=== PATIENT | female | born 1940 | race Caucasian/White ===

== ENCOUNTER 2016-08-19 14:41 | Emergency (ER) | payer MEDICARE, OTHER ==
[2016-08-19 14:51] VITALS: BP 159/79
[2016-08-19 15:16] LABS: APPEARANCE,URINE TURBID (CLEAR); BILIRUBIN,URINE NEGATIVE (NEGATIVE); GLUCOSE,URINE NEGATIVE (NEGATIVE); KETONES,URINE NEGATIVE (NEGATIVE); LEUKOCYTE ESTERASE,URINE SMALL (NEGATIVE); NITRITE,URINE POSITIVE (NEGATIVE); OCCULT BLOOD,URINE LARGE (NEGATIVE); PH,URINE 6.5 (5.0-8.0); PROTEIN,URINE 100 mg/dL (NEGATIVE); UROBILINOGEN,URINE 0.2 EU/dL (0.2)
[2016-08-19 15:30] LABS: BACTERIA,URINE FEW /HPF (NEGATIVE); MUCUS,URINE NOT SEEN /LPF (NEGATIVE); RBC CLUMPS,URINE PRESENT; RBC,URINE PACKED /HPF (NOT SEEN); RENAL EPITHELIAL CELLS,URINE FEW /HPF (NEGATIVE)
[2016-08-19] MEDS ORDERED: cefTRIAXone 1 GM Vial IM ONE (15:37)
[2016-08-19] MEDS ORDERED: Take Home: Phenazopyridine 95 MG Tab, 4 Tab Pack ONE (15:41)
--- NOTE | 2016-08-19 15:55 | EDM.PDOC ---
ED HPI RENAL/ - General Chief Complaint: Genitourinary Problem Stated Complaint: BLOOD IN URINE Time Seen by Provider: 08/19/16 14:57 Source of Information: Reports: Patient History Limitations: Reports: No limitations - History of Present Illness INITIAL COMMENTS - FREE TEXT/NARRATIVE: patient has had left-sided flank pain for the past month. This has been waxing and waning in intensity. She states that she has seen her primary doctor and she was concerned that it may have been gas retention. The patient also was told that it may also be secondary to her assisting her ailing . At any rate last night the patient started having a great deal of pelvic pain. This was followed by gross amount of hematuria. This persisted throughout the night and into this morning when it did stop but the pain has been persistent. She does have polyuria. She has a history of a kidney cancer on the left side that has been resected she had subsequent radiation thereafter. The patient has not had a urinary tract infection in number of years. She does have some next urinary incontinence. She has a history of a hysterectomy secondary to bleeding and fibroids. She has also had a cholecystectomy and appendectomy. She does have an allergy to sulfa. I did give her a shot of Rocephin and notified her that we will be doing a culture of her urine. I will be giving her Ceftin and also Pyridium. I would like for her to follow up with her primary physician in a week to ensure that the infection is gone. She is afebrile. I don't believe that she has polynephritis. Patient does not have a history of kidney stones. Her discomfort is a 6-7/10. This is quite sharp and has been constant. The patient was couple with the medical plan. It took about 25-35 minutes for the interview and examination. Location: Reports: flank (left side), suprapubic Quality: Reports: ache Severity: moderate Worsens with: Reports: urinating Context: Denies: sick contact Associated Symptoms: Reports: burning, dysuria, frequency, nocturia, urgency, voiding small amounts, blood in urine, abdominal pain (suprapubic). 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: Other (see below) (tylenol) - Related Data Allergies/ADRs: Allergies Allergy/AdvReac Type Severity Reaction Status Date / Time Sulfa (Sulfonamide Allergy Unknown Cannot Verified 08/19/16 14:53 Antibiotics) Remember atorvastatin [From Lipitor] Allergy Cannot Verified 08/19/16 14:53 Remember Home Meds: Home Meds Cefuroxime [Ceftin] 500 mg PO BID #20 tablet 08/19/16 [Rx] Levothyroxine [Synthroid] 88 mcg PO ACBREAKFAST 08/19/16 [History] Rosuvastatin [Crestor] 5 mg PO DAILY 08/19/16 [History] Sertraline HCl 25 mg PO DAILY 08/19/16 [History] Past Medical History Cardiovascular History: Reports: High cholesterol Psychiatric History: Reports: Depression Endocrine/Metabolic History: Reports: Hypothyroidism Social & Family History - Tobacco Use Smoking Status *Q: Never Smoker ED ROS GENERAL - Review of Systems Review Of Systems: See Below Respiratory: Reports: no symptoms Cardiovascular: Reports: No symptoms GI/Abdominal: Reports: Abdominal pain (suprapubic.) : Reports: dysuria, flank pain, frequency, hematuria, incontinence, pain, urgency Neurological: Reports: no symptoms Psychiatric: Reports: No symptoms ED EXAM, RENAL/ - Physical Exam Exam: See Below Exam Limited By: No limitations General Appearance: alert, moderate distress Eye Exam: bilateral eye: EOMI Respiratory/Chest: no respiratory distress, lungs clear, normal breath sounds, no accessory muscle use, chest non-tender Cardiovascular: normal peripheral pulses, regular rate, rhythm, no edema, no gallop, no JVD, no murmur, no rub GI/Abdominal: normal bowel sounds, soft, other (tenderness suprapubic) Back Exam: CVA tenderness (L). No: CVA tenderness (R) Extremities: normal inspection Neurological: alert, oriented Psychiatric: normal affect Skin Exam: Warm, Dry Course - Vital Signs Last Recorded V/S: Last Vital Signs Temp 36.2 C 08/19/16 14:51 Pulse 81 08/19/16 14:51 Resp 18 08/19/16 14:51 BP 159/79 H 08/19/16 14:51 Pulse Ox 96 08/19/16 14:51 - Orders/Labs/Meds Orders: Active Orders 24 hr Category Date Time Status CULTURE URINE [RM] Stat Lab 08/19/16 15:01 Received Labs: Laboratory Tests 08/19/16 Range/Units 15:01 Urine Color Heidi H (YELLOW) Urine Appearance Turbid H (CLEAR) Urine pH 6.5 (5.0-8.0) Ur Specific [place] 1.025 Urine Protein 100 H (NEGATIVE) mg/dL Urine Glucose (UA) Negative (NEGATIVE) mg/dL Urine Ketones Negative (NEGATIVE) mg/dL Urine Occult Blood Large H (NEGATIVE) Urine Nitrite Positive H (NEGATIVE) Urine Bilirubin Negative (NEGATIVE) Urine Urobilinogen 0.2 (0.2) EU/dL Ur Leukocyte Esterase Small H (NEGATIVE) Urine RBC Packed (NOT SEEN) /HPF Urine Red Cell Clumps Present Urine WBC 5-10 H (NOT SEEN) /HPF Ur Squamous Epith Cells Moderate H (NEGATIVE) /HPF Ur Renal Epithelial Cell Few H (NEGATIVE) /HPF Amorphous Sediment Few Urine Bacteria Few H (NEGATIVE) /HPF Urine Mucus Not seen (NEGATIVE) /LPF Meds: Medications Discontinued Medications Generic Name Dose Route Start Last Admin Trade Name Freq PRN Reason Stop Dose Admin Ceftriaxone Sodium 1 gm 08/19/16 15:37 08/19/16 16:06 Rocephin IM 08/19/16 15:38 1 gm ONETIME ONE Administration Phenazopyridine HCl 1 packet 08/19/16 15:41 Take Home: Phenazopyridine, 4 Tab Pack .XX 08/19/16 15:42 ONETIME ONE Departure - Departure Time of Disposition: 15:51 Disposition: Home, Self-Care 01 Preliminary Cause of *Q: sepsis & multi system organ failure Condition: good Clinical Impression: UTI, Urinary tract infectious disease Urinary tract infection Qualifiers: Urinary tract infection type: acute cystitis Hematuria presence: with hematuria Qualified Code(s): N30.01 - Acute cystitis with hematuria Prescriptions: Cefuroxime [Ceftin] 500 mg PO BID #20 tablet Instructions: Urinary Tract Infection, Adult, [id number] Referrals: Zoe Menjivar MD [Primary Care Provider] - Forms: ED Department Discharge Additional Instructions: Your urinary system does have an infection. The urinary culture is still pending. You did receive a shot of Rocephin today and I would like for you to fill the prescription tomorrow. You also received some Pyridium for the discomfort. Stay well hydrated. Followup with your primary physician. If the urinary culture comes back as we need to change the medications we will notify you. I would also recommend following up with your primary doctor to ensure that the infection is gone. - My Orders Last 24 Hours: My Active Orders 08/19/16 15:01 CULTURE URINE [RM] Stat - Assessment/Plan Last 24 Hours: My Active Orders 08/19/16 15:01 CULTURE URINE [RM] Stat
== END 2016-08-19 16:15 | disposition home or self-care (01) ==
LOC: VM.ED 14:41
DX: N30.01 Acute cystitis with hematuria (principal); E78.00 Pure hypercholesterolemia, unspecified; F32.9 Major depressive disorder, single episode, unspecified; E03.9 Hypothyroidism, unspecified; Z88.2 Allergy status to sulfonamides; Z88.8 Allergy status to other drugs, medicaments and biological substances; Z79.899 Other long term (current) drug therapy
CPT/HCPCS: 81001; 87086; 87088; 87186; 96372; 99283; A9270; J0696

== ENCOUNTER 2020-03-16 07:12 | Emergency (ER) | payer MEDICARE, OTHER ==
[2020-03-16] MEDS ORDERED: Aspirin 81 MG Tab.Chew PO ONE (07:28)
[2020-03-16] MEDS ORDERED: Nitroglycerin 0.4 MG Tab.SL SL ONE (07:28)
[2020-03-16] MEDS ORDERED: Sodium Chloride 0.9% 10 ML Syringe FLUSH PRN ×2 (07:33→08:18)
--- NOTE | 2020-03-16 08:05 | EDM.PDOC ---
ED HPI GENERAL MEDICAL PROBLEM - General Stated Complaint: CHEST PAINS Time Seen by Provider: 03/16/20 07:20 Source of Information: Reports: Patient History Limitations: Reports: No Limitations - History of Present Illness INITIAL COMMENTS - FREE TEXT/NARRATIVE: Patient comes emergency department today from home with complaints of chest pressure and pain. This patient on Saturday throughout the day had heaviness on her chest. She had shortness of breath with physical exertion. The pain resolved on its own eventually and she was not seen. She did talk with her primary care provider over the phone who told her to come to the ER although she did not as her pain resolved. This morning when she got up to go to the bathroom she had a very similar pressure on her chest. This pressure is a constant heaviness on her chest. She has shortness of breath with physical exertion. No weakness dizziness lightheadedness. No syncope. No palpitations. No cough or congestion. No fever no chills. No COVID exposure COVID symptoms. No diaphoresis nausea or vomiting. No abdominal pain. No black or tarry stools or history of GI bleed. Chest Pain Pain Score (Numeric/FACES): 5 - Related Data Allergies Allergy/AdvReac Type Severity Reaction Status Date / Time Sulfa (Sulfonamide Allergy Unknown Cannot Verified 03/16/20 08:46 Antibiotics) Remember atorvastatin [From Lipitor] Allergy Cannot Verified 03/16/20 08:46 Remember Home Meds: Home Meds Cefuroxime [Ceftin] 500 mg PO BID #20 tablet 08/19/16 [Rx] Levothyroxine [Synthroid] 88 mcg PO ACBREAKFAST 08/19/16 [History] Rosuvastatin [Crestor] 5 mg PO DAILY 08/19/16 [History] Sertraline HCl 25 mg PO DAILY 08/19/16 [History] Past Medical History Cardiovascular History: Reports: High Cholesterol Psychiatric History: Reports: Depression Endocrine/Metabolic History: Reports: Hypothyroidism ED ROS GENERAL - Review of Systems Review Of Systems: Comprehensive ROS is negative, except as noted in HPI. ED EXAM, GENERAL - Physical Exam Exam: See Below Exam Limited By: No Limitations General Appearance: Alert, WD/WN, No Apparent Distress Eye Exam: Bilateral Eye: EOMI Ears: Normal External Exam Nose: Normal Inspection Throat/Mouth: Normal Inspection Head: Atraumatic, Normocephalic Neck: Normal Inspection, Supple Respiratory/Chest: No Respiratory Distress, Lungs Clear, Normal Breath Sounds, No Accessory Muscle Use, Chest Non-Tender Cardiovascular: Normal Peripheral Pulses, Regular Rate, Rhythm Peripheral Pulses: 2+: Radial (L), Radial (R) GI/Abdominal: Normal Bowel Sounds, Soft (Female) Exam: Deferred Rectal (Female) Exam: Deferred Back Exam: Normal Inspection Extremities: Normal Inspection, Normal Range of Motion, No Pedal Edema, Normal Capillary Refill Neurological: Alert, Oriented, CN II-XII Intact, Normal Cognition, No Motor/Sensory Deficits Psychiatric: Normal Affect, Normal Mood Skin Exam: Warm, Dry, Intact, Normal Color EKG INTERPRETATION EKG Date: 03/16/20 Time: 07:10 Rhythm: NSR Rate (Beats/Min): 84 [place]: Normal P-Wave: Present QRS: Normal ST-T: Depressed (Almost 1mm of lateral depression) Comparison: Change From Previous EKG Course - Vital Signs Last Recorded V/S: Last Vital Signs Temp 98.2 F 03/16/20 07:45 Pulse 63 03/16/20 11:11 Resp 14 03/16/20 11:11 BP 152/69 H 03/16/20 11:11 Pulse Ox 97 03/16/20 11:11 - Orders/Labs/Meds Orders: Active Orders 24 hr Category Date Time Status EKG Documentation Completion [RC] STAT Care 03/16/20 07:33 Active EKG Documentation Completion [RC] STAT Care 03/16/20 07:50 Active Heparin Sodium/0.45% NaCl [Heparin 25,000 Units in 1/2 Med 03/16/20 08:45 Active NS 500 ML] 25,000 units in 500 ml IV TITRATE Sodium Chloride 0.9% [Saline Flush] Med 03/16/20 07:33 Active 10 ml FLUSH ASDIRECTED PRN Sodium Chloride 0.9% [Saline Flush] Med 03/16/20 08:18 Active 10 ml FLUSH ASDIRECTED PRN Peripheral IV Insertion Adult [OM.PC] Stat Oth 03/16/20 07:33 Ordered Peripheral IV Insertion Adult [OM.PC] Stat Oth 03/16/20 08:18 Ordered Medication Orders Heparin Sodium/Sodium Chloride (Heparin 25,000 Units In 1/2 Ns 500 Ml) 25,000 units in 500 mls @ 20 mls/hr IV TITRATE [facility]; Protocol Last Admin: 03/16/20 09:05 Dose: 1,000 units/hr, 20 mls/hr Documented by: WILLARD Cosigned by: SHAYY Sodium Chloride (Saline Flush) 10 ml FLUSH ASDIRECTED PRN PRN Reason: Keep Vein Open Sodium Chloride (Saline Flush) 10 ml FLUSH ASDIRECTED PRN PRN Reason: Keep Vein Open Labs: Laboratory Tests 03/16/20 03/16/20 03/16/20 Range/Units 07:35 07:35 07:35 WBC 5.4 (4.0-10.0) x10^3/uL RBC 4.50 (4.00-5.50) x10^6/uL Hgb 14.3 (12.0-16.0) g/dL Hct 42.0 (33.0-47.0) % MCV 93.3 H (78.0-93.0) fL MCH 31.8 (26.0-32.0) pg MCHC 34.0 (32.0-36.0) g/dL RDW Coeff of Thien 13.9 (10.0-15.0) % Plt Count 172 (130-400) x10^3/uL Neut % (Auto) 50.1 (50.0-80.0) % Lymph % (Auto) 34.8 (25.0-50.0) % [place] % (Auto) 8.9 (2.0-11.0) % Eos % (Auto) 5.8 H (0.0-4.0) % Baso % (Auto) 0.4 (0.2-1.2) % PT (9.5-12.3) SEC INR (2.0-3.5) APTT (25.6-32.8) SEC Sodium 140 (136-145) mmol/L Potassium 4.1 (3.5-5.1) mmol/L Chloride 105 (98-107) mmol/L Carbon Dioxide 27 (21-32) mmol/L Anion Gap 12.1 (10-20) mmol/L BUN 15 (7-18) mg/dL Creatinine 1.0 (0.55-1.02) mg/dL Est Cr Clr Drug Dosing TNP Estimated GFR (MDRD) 53 Glucose 98 (74-106) mg/dL Lactic Acid (0.4-2.0) mmol/L Calcium 9.9 (8.5-10.1) mg/dL Corrected Calcium 10.06 (8.5-10.1) mg/dL Total Bilirubin 0.7 (0.2-1.0) mg/dL AST 487 H (15-37) U/L ALT 800 H (14-59) U/L Alkaline Phosphatase 196 H (46-116) U/L Troponin I < 0.017 (<=0.056) ng/mL C-Reactive Protein 2.0 H (<=0.9) mg/dL Total Protein 7.1 (6.4-8.2) g/dL Albumin 3.8 (3.4-5.0) g/dL Globulin 3.3 Albumin/Globulin Ratio 1.15 Lipase 299 (73-393) U/L 03/16/20 03/16/20 03/16/20 Range/Units 08:32 08:32 10:49 WBC (4.0-10.0) x10^3/uL RBC (4.00-5.50) x10^6/uL Hgb (12.0-16.0) g/dL Hct (33.0-47.0) % MCV (78.0-93.0) fL MCH (26.0-32.0) pg MCHC (32.0-36.0) g/dL RDW Coeff of Thien (10.0-15.0) % Plt Count (130-400) x10^3/uL Neut % (Auto) (50.0-80.0) % Lymph % (Auto) (25.0-50.0) % [place] % (Auto) (2.0-11.0) % Eos % (Auto) (0.0-4.0) % Baso % (Auto) (0.2-1.2) % PT 9.9 (9.5-12.3) SEC INR 0.9 L (2.0-3.5) APTT 24.3 L (25.6-32.8) SEC Sodium (136-145) mmol/L Potassium (3.5-5.1) mmol/L Chloride (98-107) mmol/L Carbon Dioxide (21-32) mmol/L Anion Gap (10-20) mmol/L BUN (7-18) mg/dL Creatinine (0.55-1.02) mg/dL Est Cr Clr Drug Dosing Estimated GFR (MDRD) Glucose (74-106) mg/dL Lactic Acid 0.9 (0.4-2.0) mmol/L Calcium (8.5-10.1) mg/dL Corrected Calcium (8.5-10.1) mg/dL Total Bilirubin (0.2-1.0) mg/dL AST (15-37) U/L ALT (14-59) U/L Alkaline Phosphatase (46-116) U/L Troponin I < 0.017 (<=0.056) ng/mL C-Reactive Protein (<=0.9) mg/dL Total Protein (6.4-8.2) g/dL Albumin (3.4-5.0) g/dL Globulin Albumin/Globulin Ratio Lipase (73-393) U/L 03/16/20 03/16/20 Range/Units 15:02 15:02 WBC (4.0-10.0) x10^3/uL RBC (4.00-5.50) x10^6/uL Hgb (12.0-16.0) g/dL Hct (33.0-47.0) % MCV (78.0-93.0) fL MCH (26.0-32.0) pg MCHC (32.0-36.0) g/dL RDW Coeff of Thien (10.0-15.0) % Plt Count (130-400) x10^3/uL Neut % (Auto) (50.0-80.0) % Lymph % (Auto) (25.0-50.0) % [place] % (Auto) (2.0-11.0) % Eos % (Auto) (0.0-4.0) % Baso % (Auto) (0.2-1.2) % PT (9.5-12.3) SEC INR (2.0-3.5) APTT 97.4 H* D (25.6-32.8) SEC Sodium (136-145) mmol/L Potassium (3.5-5.1) mmol/L Chloride (98-107) mmol/L Carbon Dioxide (21-32) mmol/L Anion Gap (10-20) mmol/L BUN (7-18) mg/dL Creatinine (0.55-1.02) mg/dL Est Cr Clr Drug Dosing Estimated GFR (MDRD) Glucose (74-106) mg/dL Lactic Acid (0.4-2.0) mmol/L Calcium (8.5-10.1) mg/dL Corrected Calcium (8.5-10.1) mg/dL Total Bilirubin (0.2-1.0) mg/dL AST (15-37) U/L ALT (14-59) U/L Alkaline Phosphatase (46-116) U/L Troponin I < 0.017 (<=0.056) ng/mL C-Reactive Protein (<=0.9) mg/dL Total Protein (6.4-8.2) g/dL Albumin (3.4-5.0) g/dL Globulin Albumin/Globulin Ratio Lipase (73-393) U/L Meds: Medications Generic Name Dose Route Start Last Admin Trade Name Freq PRN Reason Stop Dose Admin Heparin Sodium/Sodium Chloride 25,000 units in 500 mls @ 20 mls/hr 03/16/20 08:45 03/16/20 09:05 Heparin 25,000 Units In 1/2 Ns 500 Ml IV 1,000 units/hr TITRATE LUDIVINA 20 mls/hr Administration Protocol 1,000 UNITS/HR Sodium Chloride 10 ml 03/16/20 07:33 Saline Flush FLUSH ASDIRECTED PRN Keep Vein Open Sodium Chloride 10 ml 03/16/20 08:18 Saline Flush FLUSH ASDIRECTED PRN Keep Vein Open Discontinued Medications Generic Name Dose Route Start Last Admin Trade Name George PRN Reason Stop Dose Admin Aspirin 324 mg 03/16/20 07:28 03/16/20 07:37 Aspirin PO 03/16/20 07:29 324 mg ONETIME ONE Administration Heparin Sodium (Porcine) 4,000 units 03/16/20 08:32 03/16/20 08:40 Heparin Sodium IVPUSH 03/16/20 08:33 4,000 units .BOLUS ONE Administration Lactated Ringer's 1,000 mls @ 999 mls/hr 03/16/20 09:03 03/16/20 09:15 Ringers, Lactated IV 03/16/20 10:03 999 mls/hr ONETIME ONE Administration Iopamidol 100 ml 03/16/20 08:45 03/16/20 09:08 Isovue-300 (61%) IVPUSH 03/16/20 08:46 100 ml ONETIME ONE Administration Nitroglycerin 0.4 mg 03/16/20 07:28 03/16/20 07:46 Nitrostat SL 03/16/20 07:29 0.4 mg ONETIME ONE Administration - Radiology Interpretation Free Text/Narrative:: Chest x-ray per radiology bilateral symmetric lung hyperinflation nonspecific but commonly seen in the sequelae of COPD. No other acute findings per radiology. CT abdomen pelvis per radiology shows mild to moderate intra-and extrahepatic bile duct dilation. Has mildly increased relative to previous CT scan in 2016. Correlation with laboratory evaluation if concern for biliary obstruction consider MRCP or ERCP for - Re-Assessments/Exams Free Text/Narrative Re-Assessment/Exam: 03/16/20 08:10 Initially was given ASA Nitro with complete relief of pain. Shortly there after CP returned. 2nd dose of Nitro given. with resolution of CP. 03/16/20 08:33 I called and spoke with Dr. Lao (? swelling). HPI ER COURSE findings and concerns were relayed to him verbally over the phone. The negative troponins as well as the elevated LFTs were highlighted and the improved ST depression and EKGs were faxed. He would like the patient to be started on Heparin and nitro gtt if the CP returns and complete a CT abd pelvis with contrast with the elevated liver enzymes and call back with the report. I discussed the plan of care with the patient and her and they are comfortable with this plan. 03/16/20 09:04 Heparin bolus and gtt started. With her history of only one kidney we will give a 500ml LR bolus and then 125mls/hr. Still chest pain free at this time. 03/16/20 11:52 There will be a delay in transfer the patient is aware as [facility] currently has no beds. Her repeat troponin is negative and she maintains CP free. We will repeat troponin and PTT with the heparin gtt. 03/16/20 14:39 Still waiting on a bed from [place]. NO CP since the nitros earlier. waiting for repeat lab at 3pm. PT is aware of waiting reason. 03/16/20 15:35 PTT 97 will hold the infusion for an hour and decrease by 4units/kg/hr still waiting for a bed from [place]. Still no chest pain. Departure - Departure Time of Disposition: 09:00 Disposition: DC/Tfer to [facility] 02 Reason for Transfer *Q: Other Clinical Impression: Angina at rest, Elevated liver enzymes Referrals: Zoe Menjivar MD [Primary Care Provider] - Forms: Interfacility Transfer EMTALA Sepsis Event Note (ED) - Focused Exam Vital Signs: Vital Signs Temp Pulse Resp BP BP Pulse Ox 03/16/20 11:11 63 14 152/69 H 97 03/16/20 10:15 66 15 145/62 H 03/16/20 09:40 70 128/58 L 03/16/20 09:10 72 132/78 03/16/20 08:38 67 119/59 L 03/16/20 08:28 66 14 109/57 L 96 03/16/20 08:18 76 111/63 96 03/16/20 08:08 84 15 104/48 L 97 03/16/20 07:59 81 14 147/61 H 97 03/16/20 07:50 76 16 141/76 H 97 03/16/20 07:46 72 16 160/79 H 160/79 H 94 L 03/16/20 07:45 98.2 F 76 14 177/80 H 94 L - My Orders Last 24 Hours: My Active Orders 03/16/20 07:33 EKG Documentation Completion [RC] STAT Sodium Chloride 0.9% [Saline Flush] 10 ml FLUSH ASDIRECTED PRN Peripheral IV Insertion Adult [OM.PC] Stat 03/16/20 07:50 EKG Documentation Completion [RC] STAT 03/16/20 08:18 Sodium Chloride 0.9% [Saline Flush] 10 ml FLUSH ASDIRECTED PRN Peripheral IV Insertion Adult [OM.PC] Stat 03/16/20 08:45 Heparin Sodium/0.45% NaCl [Heparin 25,000 Units in 1/2 NS 500 ML] 25,000 units in 500 ml IV TITRATE - Assessment/Plan Last 24 Hours: My Active Orders 03/16/20 07:33 EKG Documentation Completion [RC] STAT Sodium Chloride 0.9% [Saline Flush] 10 ml FLUSH ASDIRECTED PRN Peripheral IV Insertion Adult [OM.PC] Stat 03/16/20 07:50 EKG Documentation Completion [RC] STAT 03/16/20 08:18 Sodium Chloride 0.9% [Saline Flush] 10 ml FLUSH ASDIRECTED PRN Peripheral IV Insertion Adult [OM.PC] Stat 03/16/20 08:45 Heparin Sodium/0.45% NaCl [Heparin 25,000 Units in 1/2 NS 500 ML] 25,000 units in 500 ml IV TITRATE
[2020-03-16 08:12] LABS: CHLORIDE,CL 105 mmol/L (98-107); SODIUM,NA 140 mmol/L (136-145)
[2020-03-16 08:14] LABS: ANION GAP 12.1 mmol/L (10-20)
[2020-03-16] MEDS ORDERED: Heparin Sodium 5,000 Units/ML Vial IVPUSH ONE (08:32)
[2020-03-16] MEDS ORDERED: Iopamidol 612 MG/ML 100 ML Bottle IVPUSH ONE (08:45)
[2020-03-16] MEDS ORDERED: Heparin Sodium/0.45% NaCl 25,000 UNITS/500 ML BAG IV SCH (08:45)
[2020-03-16 08:55] LABS: PTT,PARTIAL THROMBOPLSTIN TIME 24.3 SEC (25.6-32.8)
[2020-03-16] MEDS ORDERED: Lactated Ringers 1,000 ML IV ONE (09:03)
[2020-03-16 11:12] VITALS: BP 152/69; PULSE 63
--- NOTE | 2020-03-16 12:13 | CR ---
[id number] RAD/RAD Chest PA or AP 1V EXAM: RAD Chest PA or AP 1V INDICATION: CHEST PAIN. COMPARISON: None. DISCUSSION: Heart is normal in size. There does appear to be mild central vascular congestion. Bilateral symmetric lung hyperinflation, nonspecific but commonly seen as sequela of COPD. IMPRESSION: No acute findings. Other findings are described above. Ricky Mejia MD 03/16/20 1212 Thank you for allowing us to participate in the care of your patient.
--- NOTE | 2020-03-16 12:13 | CT ---
[id number] CT/CT Abdomen Pelvis W IV EXAM: ABDOMEN AND PELVIS CT WITH CONTRAST INDICATION: ELEVATED LIVER ENZYMES. COMPARISON: August 08, 2016. DISCUSSION: Possible mild fatty infiltration of the liver. The liver parenchyma is otherwise normal in appearance. The gallbladder is surgically absent. There is mild associated intrahepatic duct dilation and the common duct is dilated to about 12 mm. These findings have mildly increased, but are often seen postcholecystectomy. If there is an elevated bilirubin or other clinical evidence of obstruction an MRCP or ERCP could provide further evaluation. Minor nodularity of the adrenal glands is nonspecific, but stable and of doubtful clinical significance. The left kidney and the uterus are surgically absent. The right kidney contains a couple of cysts the largest measuring about 32 mm in diameter. Diastases recti. Small fat-containing epigastric upper abdominal wall hernias. Scattered degenerative changes in the spine. The osseous structures are otherwise unremarkable. IMPRESSION: 1. Mild to moderate intra and extrahepatic bile duct dilation have mildly increased relative to August 08, 2016, but may relate to the patient's previous cholecystectomy. Correlation with clinical and lab data is suggested. If there is clinical concern for biliary obstruction, consider MRCP or ERCP for further characterization. Kamaljit Harrison MD 03/16/20 [id number] Thank you for allowing us to participate in the care of your patient.
== END 2020-03-16 18:50 | disposition short-term general hospital (02) ==
LOC: VM.ED 07:12
DX: I20.9 Angina pectoris, unspecified (principal); R74.8 Abnormal levels of other serum enzymes; E78.00 Pure hypercholesterolemia, unspecified; F32.9 Major depressive disorder, single episode, unspecified; I10 Essential (primary) hypertension; Z79.899 Other long term (current) drug therapy; Z88.2 Allergy status to sulfonamides; Z88.8 Allergy status to other drugs, medicaments and biological substances
CPT/HCPCS: 36415; 71045; 74177; 80053; 83605; 83690; 84484; 85025; 85610; 85730; 86140; 93005; 93010; 96365; 96366; 96376; 99284; 99285; A9270; J1644; J7120; Q9967

== ENCOUNTER 2021-12-04 20:55 | Emergency (ER) | payer MEDICARE, OTHER ==
[2021-12-04] MEDS ORDERED: Azithromycin 250 MG Tab PO ONE (21:20)
[2021-12-04] MEDS ORDERED: predniSONE 20 MG Tab PO ONE (21:38)
[2021-12-04 22:17] VITALS: BP 184/80; PULSE 74
== END 2021-12-04 21:35 | disposition home or self-care (01) ==
LOC: VM.ED 20:55
DX: J40 Bronchitis, not specified as acute or chronic (principal); H93.8X3 Other specified disorders of ear, bilateral; E78.00 Pure hypercholesterolemia, unspecified; E03.9 Hypothyroidism, unspecified; Z88.2 Allergy status to sulfonamides; Z88.8 Allergy status to other drugs, medicaments and biological substances; Z79.899 Other long term (current) drug therapy
CPT/HCPCS: 99283; 99284; A9270-GY; J7512

== ENCOUNTER 2023-04-25 12:51 | Day surgery (SDC) | payer MEDICARE, OTHER ==
[~2023-04-25 12:51] MED LIST: Lactated Ringers 1,000 ML IV SCH
[2023-04-25] MEDS ORDERED: fentaNYL 100 MCG/2 ML SDV ONE (14:43)
[2023-04-25] MEDS ORDERED: Propofol 200 MG/20 ML SDV ONE ×2 (14:44→15:47)
[2023-04-25 16:16] VITALS: BP 130/52; PULSE 65
== END 2023-04-25 17:10 | disposition home or self-care (01) ==
LOC: VM.SDS 12:51
PROVIDERS: ATTEND Family Medicine
DX: K52.9 Noninfective gastroenteritis and colitis, unspecified (principal); K57.30 Diverticulosis of large intestine without perforation or abscess without bleeding; K64.9 Unspecified hemorrhoids; K64.4 Residual hemorrhoidal skin tags; E78.00 Pure hypercholesterolemia, unspecified; E03.9 Hypothyroidism, unspecified; N18.30 Chronic kidney disease, stage 3 unspecified; F32.A Depression, unspecified; E66.9 Obesity, unspecified; Z79.890 Hormone replacement therapy; Z79.899 Other long term (current) drug therapy; Z88.2 Allergy status to sulfonamides; Z88.8 Allergy status to other drugs, medicaments and biological substances; Z87.891 Personal history of nicotine dependence
CPT/HCPCS: 00811; 45380; 88305; J2704; J3010; J7120

== ENCOUNTER 2023-05-19 09:50 | Emergency (ER) | payer MEDICARE, OTHER ==
[2023-05-19] MEDS ORDERED: Take Home: predniSONE 20 MG, 2 Tab Pack PO ONE (10:10)
[2023-05-19] MEDS ORDERED: Take Home: traMADol 50 MG, 4 Tab Pack PO ONE (10:10)
[2023-05-19 10:14] VITALS: BP 160/75; PULSE 62
[2023-05-19] MEDS ORDERED: valACYclovir 1,000 MG Tab ONE (10:17)
[2023-05-19] MEDS ORDERED: valACYclovir 1,000 MG Tab PO SCH (13:00)
== END 2023-05-19 10:35 | disposition home or self-care (01) ==
LOC: VM.ED 09:50
DX: B02.9 Zoster without complications (principal); E78.00 Pure hypercholesterolemia, unspecified; N18.9 Chronic kidney disease, unspecified; E03.9 Hypothyroidism, unspecified; E66.9 Obesity, unspecified; Z68.34 Body mass index [BMI] 34.0-34.9, adult; Z79.899 Other long term (current) drug therapy; Z88.2 Allergy status to sulfonamides; Z88.8 Allergy status to other drugs, medicaments and biological substances
CPT/HCPCS: 99283; A9270; J7512

== ENCOUNTER 2024-01-12 22:23 | Emergency (ER) | payer MEDICARE, OTHER ==
[2024-01-12 22:35] VITALS: PULSE 75
[2024-01-12] MEDS: Acetaminophen 500 MG Tab PO ONE (22:46)
[2024-01-12] MEDS: SUMAtriptan 50 MG Tab PO ONE (22:47)
[2024-01-12] MEDS: Dexamethasone 4 MG/ML SDV IM ONE (22:48)
[2024-01-12 23:14] VITALS: BP 158/70
== END 2024-01-12 23:10 | disposition home or self-care (01) ==
LOC: VM.ED 22:23
DX: G43.909 Migraine, unspecified, not intractable, without status migrainosus (principal); E78.00 Pure hypercholesterolemia, unspecified; E66.9 Obesity, unspecified; E03.9 Hypothyroidism, unspecified; Z88.2 Allergy status to sulfonamides; Z88.8 Allergy status to other drugs, medicaments and biological substances; Z79.890 Hormone replacement therapy; Z79.899 Other long term (current) drug therapy; Z90.49 Acquired absence of other specified parts of digestive tract; Z90.710 Acquired absence of both cervix and uterus
CPT/HCPCS: 96372; 99283; 99284; A9270-GY; J1100